=== PATIENT | female | born 1965 | race African-American/Black ===

== ENCOUNTER 2016-04-30 12:39 | Emergency (ER) | payer BC | END 2016-04-30 13:50 | disposition home or self-care (01) | LOC: ER 12:39 | DX: J02.0 Streptococcal pharyngitis (principal); I10 Essential (primary) hypertension | CPT/HCPCS: 71020; 87880; 99284 ==

== ENCOUNTER 2016-05-17 18:36 | Emergency (ER) | payer BC | END 2016-05-17 18:42 | disposition home or self-care (01) | LOC: ER 18:36 | DX: J02.0 Streptococcal pharyngitis (principal) | CPT/HCPCS: 99283 ==